=== PATIENT | female | born 1975 | race African-American/Black ===

== ENCOUNTER 2018-03-04 03:31 | Emergency (ER) | payer OTHER ==
[~2018-03-04] VITALS: Ht 177.8 cm; Wt 90.9 kg
[2018-03-04 03:35] VITALS: Ht 177.8 cm; Wt 90.9 kg
[2018-03-04 04:04] LABS: BASOPHILS 0.3 % (0-2); EOSINOPHILS 5.3 % (0-7); HEMATOCRIT 35.4 % (36.0-48.0); HEMOGLOBIN 11.2 g/dL (12-16); IMMATURE GRANULOCYTES 0.3 % (0-5); LYMPHOCYTES 33.5 % (15-50); MCH 23.6 pg (26.0-34.0); MCHC 31.6 g/dL (31.0-37.0); MCV 74.5 fL (80.0-100.0); MEAN PLATELET VOLUME 8.8 fL (7.4-10.4); NEUTROPHILS 55.6 % (40-80); PLATELET COUNT 467 10x3/uL (130-400); RBC 4.75 10x6/uL (4.00-5.40); RDW 16.6 % (11.5-14.5); WBC 7.4 10x3/uL (4.8-10.8)
[2018-03-04 04:18] LABS: ALBUMIN 3.2 g/dL (3.4-5.0); ALKALINE PHOSPHATASE 90 U/L (46-116); ALT (SGPT) 23 U/L (10-68); BILIRUBIN - TOTAL 0.42 mg/dL (0.2-1.3); CALC OSMOLALITY 280 mosm/kg (275-300); CALCIUM 8.7 mg/dL (8.5-10.1); CARBON DIOXIDE 27.1 mmol/L (21.0-32.0); CHLORIDE - SERUM 103 mmol/L (98-107); CREATININE - SERUM 0.8 mg/dL (0.6-1.3); GLUCOSE 111 mg/dL (74-106); POTASSIUM - SERUM 3.6 mmol/L (3.5-5.1); PROTEIN - SERUM 7.4 g/dL (6.4-8.2); SODIUM 140 mmol/L (136-145); UREA NITROGEN 14 mg/dL (7-18); eGFR NON AFRICAN AMERICAN 82 mL/min (90-120)
[2018-03-04 04:23] LABS: TROPONIN-I < 0.017 ng/mL (0.000-0.060)
[2018-03-04] MEDS ORDERED: ULTRAM50 MG PO (06:43)
[2018-03-04 07:32] VITALS: BP 106/67
== END 2018-03-04 07:34 | disposition home or self-care (01) ==
LOC: D.ER 03:31
PROVIDERS: Family Medicine
DX: R07.89 Other chest pain (principal); R05 Cough